=== PATIENT | male | born 1980 ===

== ENCOUNTER 2017-09-22 11:17 | Emergency (ER) | payer OTHER ==
--- NOTE | 2017-09-22 11:57 | ED PDOC ---
Arrival/HPI - General Chief Complaint: Headache Time Seen by Provider: 09/22/17 11:52 Historian: Patient - History of Present Illness Narrative History of Present Illness (Text): 09/22/17 11:53 Pt is a 37 yr old male whose past medical history of migraine headaches, presents to the ED c/o of severe headache and body pain and associated vomiting x 1 day. Pt states that he has fever and chills and developed a right sided RODRIGUEZ yesterday morning and noticed his eyes were red but proceeded to go to work. States when he came home, he took his usual migraine medication but had no effect on the headache or body pain. Says he has vomited 2-3 times since yesterday. Denies cp, sob, diarrhea, GIB, abdominal pain or drug use. He did not receive the flu vaccine this year. Time/Duration: 24 hours Symptom Onset: Sudden Symptom Course: Worsening Context: Home Past Medical History - Provider Review Nursing Documentation Reviewed: Yes - Travel History Have you recently traveled outside [place] w/in the past 3 mons?: No - Psychiatric Hx Psychophysiologic Disorder: No Hx Substance Use: No Family/Social History - Physician Review Nursing Documentation Reviewed: Yes Family/Social History: Unknown Family HX Smoking Status: Never Smoked Hx Alcohol Use: No Hx Substance Use: No Allergies/Home Meds Allergies/Adverse Reactions: Allergies No Known Allergies Allergy (Verified 09/22/17 11:19) Review of Systems - Review of Systems Constitutional: Normal, Fatigue, Fevers Eyes: Normal ENT: Normal Respiratory: Normal. absent: SOB, Cough Cardiovascular: Normal. absent: Chest Pain Gastrointestinal: Normal. absent: Abdominal Pain Genitourinary Male: Normal Musculoskeletal: Normal, Arthralgias Skin: Normal Neurological: Normal, Headache. absent: Dizziness, Focal Weakness, Gait Changes Endocrine: Normal. absent: Diaphoresis Hemo/Lymphatic: Normal Psychiatric: Normal Physical Exam Vital Signs Reviewed: Yes Vital Signs Temp Pulse Resp BP Pulse Ox 09/22/17 15:00 79 18 116/65 98 09/22/17 13:39 98.0 F 86 18 118/70 98 09/22/17 11:19 98.0 F 99 H 17 120/77 96 Temperature: Afebrile Blood Pressure: Normal Pulse: Regular Respiratory Rate: Normal Appearance: Positive for: Well-Appearing, Non-Toxic, Comfortable Pain Distress: None Mental Status: Positive for: Alert and Oriented X 3 - Systems Exam Head: Present: Atraumatic, Normocephalic Pupils: Present: PERRL Extroacular Muscles: Present: EOMI Conjunctiva: Present: Injected Mouth: Present: Moist Mucous Membranes Pharnyx: Present: Normal Neck: Present: Normal Range of Motion Respiratory/Chest: Present: Clear to Auscultation, Good Air Exchange. No: Respiratory Distress, Accessory Muscle Use Cardiovascular: Present: Regular Rate and Rhythm, Normal S1, S2. No: Murmurs Abdomen: Present: Normal Bowel Sounds. No: Tenderness, Distention, Peritoneal Signs, Rebound, Guarding, McBurney's Point Tender Back: Present: Normal Inspection Upper Extremity: Present: Normal Inspection. No: Cyanosis, Edema Lower Extremity: Present: Normal Inspection. No: Edema Neurological: Present: GCS=15, CN II-XII Intact, Speech Normal, Motor Func Grossly Intact, Normal Sensory Function, Normal Cerebellar Funct, Norm Deep Tendon Reflexes, Gait Normal, Normal 2Pt Descrimination Skin: Present: Warm, Dry, Normal Color. No: Rashes Lymphatic: No: Cervical Adenopathy, Axillary Adenopathy Psychiatric: Present: Alert, Oriented x 3, Normal Insight, Normal Concentration Medical Decision Making ED Course and Treatment: 09/22/17 12:00 Impression Pt is a 37 yr old male whose past medical history of migraine headaches, presents to the ED c/o of severe headache and body pain and associated vomiting x 1 day. On exam, eyes are injected, nares patent and no dc, lungs clear to auscultation bilateral, joint tenderness at various jts, (-) brudzinski and kernig Dx: influenza, migraine RODRIGUEZ Plan Labs, UA Fluids analgesics Progress Note 09/22/17 12:05 Discussed findings with pt and advised: rest and drink plenty of fluids; will send home with zofran and fioricet Advised to return to ED if worsening of headache and fever with vomiting [place] diet VSS on d/c - Lab Interpretations Lab Results: 09/22/17 12:11 09/22/17 12:11 Lab Results 09/22/17 12:30: Urine Opiates Screen Negative, Urine Methadone Screen Negative, Ur Barbiturates Screen Negative, Ur Phencyclidine Scrn Negative, Ur Amphetamines Screen Negative, U Benzodiazepines Scrn Negative, U Oth Cocaine Metabols Negative, U Cannabinoids Screen Negative 09/22/17 12:11: Sodium 144, Potassium 3.7, Chloride 105, Carbon Dioxide 28, Anion Gap 14, BUN 11, Creatinine 0.8, Est GFR ( Amer) > 60, Est GFR (Non- Af Amer) > 60, Random Glucose 102, Calcium 9.2, Total Bilirubin 0.4, AST 17, ALT 28, Alkaline Phosphatase 86, Total Protein 7.0, Albumin 4.2, Globulin 2.8, Albumin/Globulin Ratio 1.5 09/22/17 12:11: Urine Color Yellow, Urine Appearance Clear, Urine pH 7.0, Ur Specific [place] 1.020, Urine Protein 30 H, Urine Glucose (UA) Negative, Urine Ketones 40 H, Urine Blood Negative, Urine Nitrate Negative, Urine Bilirubin Negative, Urine Urobilinogen 1.0 H, Ur Leukocyte Esterase Negative, Urine RBC 0 - 2, Urine WBC 2 - 5, Ur Epithelial Cells 0 - 2, Urine Bacteria Mod 09/22/17 12:11: WBC 8.1, RBC 5.22, Hgb 14.6, Hct 42.6, MCV 81.6, MCH 28.0, MCHC 34.3, RDW 14.0, Plt Count 256, MPV 9.6, Gran % 68.1 H, Lymph % (Auto) 20.5 L, Dixon % (Auto) 5.4, Eos % (Auto) 5.8 H, Baso % (Auto) 0.2, Gran # 5.53, Lymph # ( Auto) 1.7, Dixon # (Auto) 0.4, Eos # (Auto) 0.5, Baso # (Auto) 0.02 I have reviewed the lab results: Yes (Ketones present likley due to dehydration) - Medication Orders Current Medication Orders: Discontinued Medications Sodium Chloride (Sodium Chloride 0.9%) 1,000 mls @ 999 mls/hr IV .Q1H1M STA Stop: 09/22/17 13:06 Last Admin: 09/22/17 12:38 Dose: 999 mls/hr eMAR Start Stop Document 09/22/17 12:38 HI (Rec: 09/22/17 12:39 HI [id number]) Intravenous Solution Start Date 09/22/17 Start Time 12:39 Ketorolac Tromethamine (Toradol) 30 mg IVP STAT STA Stop: 09/22/17 12:10 Last Admin: 09/22/17 12:39 Dose: 30 mg MAR Pain Assessment Document 09/22/17 12:39 HI (Rec: 09/22/17 12:39 HI [id number]) Pain Reassessment Is this a pain reassessment? No Sleep Is patient sleeping during reassessment? Yes IVP Administration Document 09/22/17 12:39 HI (Rec: 09/22/17 12:39 HI [id number]) Charges for Administration # of IVP Administrations 1 Ondansetron HCl (Zofran Inj) 4 mg IVP STAT STA Stop: 09/22/17 12:09 Last Admin: 09/22/17 12:39 Dose: 4 mg IVP Administration Document 09/22/17 12:39 HI (Rec: 09/22/17 12:39 HI [id number]) Charges for Administration # of IVP Administrations 1 Disposition/Present on Arrival - Present on Arrival Any Indicators Present on Arrival: Yes History of DVT/PE: No History of Uncontrolled Diabetes: No Urinary Catheter: No History of Decub. Ulcer: No History Surgical Site Infection Following: None - Disposition Have Diagnosis and Disposition been Completed?: Yes Diagnosis: Viral gastroenteritis Disposition: HOME/ ROUTINE Disposition Time: 15:00 Patient Plan: Discharge Patient Problems: Current Active Problems Problem Status Onset Viral gastroenteritis Acute Condition: STABLE Discharge Instructions (ExitCare): Viral Gastroenteritis, Adult (DC), Gastroenteritis (ED) Additional Instructions: Iban, thank you for letting us take care of you today. Your provider was GAUTAM Leiva. You were treated for Gastroenteritis. The emergency medical care you received today was directed at your acute symptoms. If you were prescribed any medication, please fill it and take as directed. It may take several days for your symptoms to resolve. Return to the Emergency Department if your symptoms worsen, do not improve, or if you have any other problems. Rest and drink plenty of fluids; take zofran for nausea and vomiting Return to ED if worsening of headache and fever with vomiting [place] diet Please contact your doctor or call one of the physicians/clinics you have been referred to that are listed on the Patient Visit Information form that is included in your discharge packet. Bring any paperwork you were given at discharge with you along with any medications you are taking to your follow up visit. Our treatment cannot replace ongoing medical care by a primary care provider (PCP) outside of the emergency department. Thank you for allowing the [facility] team to be part of your care today. If you had an X-Ray or CT scan: A Radiologist will review the ED reading if any change in treatment is needed we will contact you. If you had a blood, urine, or wound culture: It will take several days for the results, if any change in treatment is needed we will contact you. Prescriptions: Acetaminophen/Butalbital/Caf [Fioricet] 1 tab PO Q6 5 Days #20 tab Famotidine [Pepcid] 20 mg PO Q12 #10 tab Ibuprofen [Motrin Tab] 400 mg PO Q6 #20 tab Ondansetron [Zofran] 4 mg PO Q8H #15 tab Forms: [facility] (Malay), WORK NOTE
[2017-09-22] MEDS ORDERED: Sodium Chloride 0.9% 1,000 ML IV STA (12:06)
[2017-09-22 12:16] LABS: BASO # 0.02 K/mm3 (0.0-2.0); BASO % 0.2 % (0.0-3.0); EOS # 0.5 (0.0-0.7); EOS % 5.8 % (1.5-5.0); GRAN # 5.53 (1.4-6.5); GRAN % 68.1 % (50.0-68.0); HEMOGLOBIN 14.6 g/dL (14.0-18.0); LYMPH # 1.7 (1.2-3.4); LYMPH % 20.5 % (22.0-35.0); MEAN CELL VOLUME 81.6 fl (80.0-105.0); MEAN CORPUSCULAR HGB CONC 34.3 g/dl (31.0-37.0); MEAN PLATELET VOLUME 9.6 fl (7.0-11.0); MONO # 0.4 (0.1-0.6); MONO % 5.4 % (1.0-6.0); RBC 5.22 10^6/uL (3.5-6.1); WHITE BLOOD COUNT 8.1 10^3/ul (4.5-11.0)
[2017-09-22 12:19] LABS: URINE BILIRUBIN NEGATIVE (NEGATIVE); URINE BLOOD NEGATIVE (NEGATIVE); URINE GLUCOSE (UA) NEGATIVE (NEGATIVE); URINE LEUKOCYTE ESTERASE NEGATIVE Leu/uL (NEGATIVE); URINE PROTEIN 30 mg/dL (<30 mg/dL)
[2017-09-22 12:21] LABS: URINE APPEARANCE CLEAR (CLEAR); URINE COLOR YELLOW (YELLOW)
[2017-09-22 12:24] LABS: URINE RBC 0 - 2 /hpf (0-2)
[2017-09-22 12:25] LABS: URINE BACTERIA MOD (NEG); URINE EPITHELIAL CELLS 0 - 2 /hpf (0-5)
[2017-09-22 12:27] LABS: ALB/GLOB RATIO 1.5 (1.1-1.8); ALBUMIN 4.2 g/dL (3.0-4.8); ALT/SGPT 28 U/L (7-56); AST/SGOT 17 U/L (17-59); BLOOD UREA NITROGEN 11 mg/dL (7-21); CALCIUM 9.2 mg/dL (8.4-10.5); GFR AFRICAN-AMERICAN > 60; GFR NON-AFRICAN AMERICAN > 60
[2017-09-22 13:12] LABS: BARBITURATES, UR NEGATIVE (NEGATIVE); BENZODIAZEPINES, UR NEGATIVE (NEGATIVE); OPIATES, UR NEGATIVE (NEGATIVE); PHENCYCLIDINE, UR NEGATIVE (NEGATIVE)
[2017-09-22 13:40] VITALS: RESP 18; O2SAT 98
[2017-09-22 15:11] VITALS: BP 116/65; PULSE 79
[2017-09-22 22:33] VITALS: TEMP 98
== END 2017-09-22 15:16 | disposition home or self-care (01) ==
LOC: MERGE 11:17 → ED 11:17
DX: A08.4 Viral intestinal infection, unspecified (principal)
CPT/HCPCS: 80053; 80324; 80345; 80346; 80349; 80353; 80358; 80361; 81001; 83992; 85025; 96374; 96375; 99285; J1885; J2405; J7030